=== PATIENT | female | born 1985 ===

== ENCOUNTER 2018-11-22 11:03 | Emergency (ER) | payer OTHER ==
[~2018-11-22] VITALS: Ht 160 cm; Wt 82.1 kg
[~2018-11-22 11:03] MED LIST: CIPRO100 MG; PEPCID20 MG PO; PRENA1 PLUS CO1 EACH; TUSSIN100 MG/51 PO; ZITHROMAX1 G/PKT PO; ZOFRAN4 MG PO
== END 2018-11-22 18:07 | disposition home or self-care (01) ==
LOC: ER 11:03
DX: N39.0 Urinary tract infection, site not specified (principal)

== ENCOUNTER 2019-05-04 06:36 | Inpatient (IN) | payer OTHER ==
[~2019-05-04] VITALS: Ht 160 cm; Wt 2.7 kg
[2019-05-04] MEDS ORDERED: FERROUS SULFAT325 MG PO (08:28)
[2019-05-04] MEDS ORDERED: PRENATAL TABLE1 EACH PO (10:02)
[2019-05-04] MEDS ORDERED: FOLIC ACID0.8 M1 PO (10:08)
== END 2019-05-07 14:55 | DRG 785 ==
LOC: LDR 06:36 → OB/GYN 13:55
PROVIDERS: ADMIT Obstetrics & Gynecology
PROC: 0UB70ZZ Excision of Bilateral Fallopian Tubes, Open Approach (ICD-10-PCS; 2019-05-04)
PROC: 4A033R1 Measurement of Arterial Saturation, Peripheral, Percutaneous Approach (ICD-10-PCS; 2019-05-04)
PROC: 4A1HXCZ Monitoring of Products of Conception, Cardiac Rate, External Approach (ICD-10-PCS; 2019-05-04)
PROC: 10D00Z1 Extraction of Products of Conception, Low, Open Approach (ICD-10-PCS; principal; 2019-05-04 16:45)
DX: O82 Encounter for cesarean delivery without indication (principal); O34.211 Maternal care for low transverse scar from previous cesarean delivery; Z3A.38 38 weeks gestation of pregnancy; Z30.2 Encounter for sterilization; Z22.330 Carrier of Group B streptococcus; Z37.0 Single live birth